=== PATIENT | male | born 1945 | race Caucasian/White ===

== ENCOUNTER 2024-04-30 07:13 | Day surgery (SDC) | payer MEDICARE, MEDICAID ==
[2024-04-30] VITALS (11 sets, daily range): BP systolic 101–150; BP diastolic 49–90; PULSE 63–83; RESP 12–25; TEMP 97.9; O2SAT 92–96
[~2024-04-30] VITALS: Ht 170.2 cm; Wt 67.9 kg
[~2024-04-30 07:13] MED LIST: AMI200T PO; APIX5TAB3 PO; ASPI81TA52 PO; CLON-529 PO; DIAZ10TA4 PO; DIGO250T PO; DOCU-148 PO; FURO-150 PO; LOSA-415 PO; LYR75C PO; METH-603 PO; METO-467 PO; NICO-630 TOP; NITR0.4T51 SL; PANT40TA54 PO; PRAV40TA3 PO; ROPI0.252 PO; ROPI1TAB47 PO; SAXA1TBM3 PO; SPIR25TA5 PO
[2024-04-30] MEDS ORDERED: diphenhydrAMINE 25mg capsule PO PRN (07:35)
[2024-04-30 08:22] LABS: BASOPHILS % (AUTO) 0.4 % (0-1); EOSINOPHILS # (AUTO) 0.1 X10'3 (0-0.9); EOSINOPHILS % (AUTO) 1.9 % (0-6); HEMOGLOBIN 13.8 g/dl (14.0-17.9); LYMPHOCYTES # (AUTO) 1.2 X10'3 (1.1-4.8); LYMPHOCYTES % (AUTO) 18.9 % (21-51); MEAN CORPUSCULAR HEMOGLOBIN 32.9 PG (27.0-31.0); MEAN CORPUSCULAR HGB CONC 33.7 g/dL (33.0-36.5); MEAN CORPUSCULAR VOLUME 97.6 FL (78-98); MEAN PLATELET VOLUME 8.4 FL (7.4-10.4); MONOCYTES # (AUTO) 0.6 X10'3 (0-0.9); MONOCYTES % (AUTO) 9.5 % (2-12); NEUTROPHILS # (AUTO) 4.4 X10'3 (1.8-7.7); NEUTROPHILS % (AUTO) 69.3 % (42-75); PLATELET COUNT 177 X10'3 (140-440); RED CELL DISTRIBUTION WIDTH 13.7 % (11.5-14.5); WHITE BLOOD COUNT 6.3 X10'3 (4.5-11.0)
[2024-04-30 08:30] LABS: ALBUMIN 3.2 G/DL (3.4-5.0); ANION GAP 8 (8-16); BLOOD UREA NITROGEN 22 MG/DL (7-18); BUN/CREATININE RATIO 29.3 (10.0-20.0); CALCIUM 8.3 MG/DL (8.5-10.1); CHLORIDE 104 MMOL/L (99-107); CREATININE 0.75 MG/DL (0.60-1.10); GLUCOSE 290 MG/DL (70-104); MAGNESIUM 2.7 MG/DL (1.5-2.4); POTASSIUM 4.3 MMOL/L (3.5-5.1); SODIUM 139 MMOL/L (135-145); TOTAL CARBON DIOXIDE 27.5 MMOL/L (24-32); eCRCL 75 ML/MIN; eGFR > 90 ML/MIN
[2024-04-30 08:32] LABS: PROTHROMBIN TIME 10.1 SECONDS (9.0-12.0)
[2024-04-30] MEDS ORDERED: ALBU17AE26 INH (08:49)
[2024-04-30] MEDS ORDERED: EMPA25TA PO (08:49)
[2024-04-30] MEDS ORDERED: ROPI4TAB41 PO (08:49)
[2024-04-30] MEDS ORDERED: ENAL-79 PO (08:49)
[2024-04-30] MEDS ORDERED: BUDE10.22 INH (08:49)
[2024-04-30] MEDS ORDERED: HYDR-3964 PO (08:49)
[2024-04-30] MEDS ORDERED: METF-438 PO (08:49)
[2024-04-30] MEDS ORDERED: METO100T14 PO (08:49)
[2024-04-30] MEDS: sodium bicarbonate (8.4%) inj. 150 MEQ in dextrose 5%-water 1,000 ML IV ONE (09:19)
[2024-04-30] MEDS ORDERED: LIDOcaine 1% (10mg/ml) 2ml vial ONE (10:44)
[2024-04-30] MEDS ORDERED: iohexol 350 MG/ML 50ML vial IV ONE ×3 (10:45→12:26)
[2024-04-30] MEDS ORDERED: midazolam 1 mg/ML 2ml injection ONE ×2 (10:45→11:53)
[2024-04-30] MEDS ORDERED: iohexol 350MG/ML 100ml bottle IV ONE (10:45)
[2024-04-30] MEDS ORDERED: nitroGLYCERIN 500mcg/5mL D5W 5 ML IV ONE (10:45)
[2024-04-30] MEDS ORDERED: fentaNYL/PF 50MCG/1 ML 2ML syringe ONE (10:45)
[2024-04-30] MEDS ORDERED: heparin 1,000unit/ml 10ml vial 10 ML ONE (10:45)
[2024-04-30] MEDS ORDERED: verapamil 2.5 mg/ml inj IV ONE (10:45)
[2024-04-30] MEDS ORDERED: HYDROmorphone 1 mg/ml syringe ONE (11:53)
[2024-04-30] MEDS ORDERED: ondansetron/PF 4mg/2ml inj IV PRN (13:45)
[2024-04-30] MEDS ORDERED: HYDROcodone/acetaminophen 10/325mg tab PO PRN (13:50)
[2024-04-30] MEDS ORDERED: proCHLORperazine 10 MG/2 ml inj IV PRN (13:50)
[2024-04-30] MEDS ORDERED: HYDROcodone/acetaminophen 5mg/325mg tablet PO PRN (13:50)
== END 2024-04-30 17:00 | disposition home or self-care (01) ==
LOC: SSTAY O 07:13
PROVIDERS: ATTEND Internal Medicine Cardiovascular Disease
DX: R94.39 Abnormal result of other cardiovascular function study (principal); I25.10 Atherosclerotic heart disease of native coronary artery without angina pectoris; I25.2 Old myocardial infarction; I50.9 Heart failure, unspecified; Z79.899 Other long term (current) drug therapy; I11.0 Hypertensive heart disease with heart failure; I48.0 Paroxysmal atrial fibrillation; I42.0 Dilated cardiomyopathy; E78.5 Hyperlipidemia, unspecified; E11.9 Type 2 diabetes mellitus without complications; J44.9 Chronic obstructive pulmonary disease, unspecified; Z98.890 Other specified postprocedural states
CPT/HCPCS: 36415; 80048; 82948; 83735; 85025; 85610; 93005; 93458; 93571; 99152; 99153; A6258; A6402; C1751; C1769; C1894; J1171; J1644; J2003; J2250; J3010; J3490; J7030; J7070; Q9967; Z7610